=== PATIENT | female | born 1940 | race Two or more races ===

== ENCOUNTER 2022-11-04 23:18 | Emergency (ER) | payer OTHER ==
[~2022-11-04] VITALS: Ht 162.6 cm; Wt 59.0 kg
[2022-11-05] MEDS ORDERED: MEMANTINE H2 MG/1 ML (00:03)
[2022-11-05] MEDS ORDERED: PLAVIX75 MG (00:03)
[2022-11-05] MEDS ORDERED: ALDACTONE25 MG (00:04)
== END 2022-11-05 04:40 ==
LOC: ER 23:18
DX: S09.90XA Unspecified injury of head, initial encounter (principal); W22.8XXA Striking against or struck by other objects, initial encounter; Y93.9 Activity, unspecified; Y92.013 Bedroom of single-family (private) house as the place of occurrence of the external cause; G30.9 Alzheimer's disease, unspecified; F02.80 Dementia in other diseases classified elsewhere, unspecified severity, without behavioral disturbance, psychotic disturbance, mood disturbance, and anxiety; E03.9 Hypothyroidism, unspecified; Z95.2 Presence of prosthetic heart valve